=== PATIENT | female | born 1980 | race Caucasian/White ===

== ENCOUNTER 2019-10-30 05:32 | Observation (INO) ==
--- NOTE | 2019-10-09 15:24 | Anesthesiology Consultation ---
Date of Service October 09, 2019 Assessment & Plan (1) Encounter for pre-operative examination: - Check test AM DOS Chart Review Chart Review: Acceptable Risk for Surgery and Patient NOT seen in Pre Admission Testing History Surgery Operation Date: 10/30/19 07:30 Proposed Procedures p Abdominoplasty, - Eliza Landers MD s Bilateral Breast Implant Removal with Mastopexy and Suction Assisted Liposuction of Thighs - Eliza Landers MD Height/Weight Height: 5 ft 4 in Weight: 77.111 kg Allergies Allergy/AdvReac Type Severity Reaction Status Date / Time No Known Allergies Allergy Verified 08/02/19 08:52 Medications Home Medications Medication Instructions Recorded Confirmed Last Taken oxycodone-acetaminophen 5 mg-325 1 tab PO Q4H PRN #18 tab 10/05/19 10/09/19 Unknown mg tablet Lactobacillus acidophilus 1,000 mmu cells PO DAILY 10/09/19 10/09/19 Unknown [Probiotic Acidophilus] cannabidiol 10 mg PO BID 10/09/19 10/09/19 Unknown Past Medical History Medical History Anxiety Seasonal depression Past Family History Family History Grandmother (Paternal) FHx: ovarian cancer Grandfather (Paternal) FHx: lung cancer Grandmother (Maternal) FHx: breast cancer Other No family history of adverse response to anesthesia Past Surgical History Surgical History History of ankle surgery right History of breast augmentation History of section x2 S/P LASIK surgery Social History Smoking Status: Never smoker Do You Dip or Chew Tobacco: No Hx Alcohol Use: Yes alcohol intake frequency: holidays/special occasions only Hx Substance Use: No substance use type: does not use Testing Laboratory Results 10/04/19 WBC 6.37 H/H 14.9/42.4 PLATELETS 263 SODIUM 139 POTASSIUM 3.8 CHLORIDE 106 CO2 27 BUN 6 CREATININE 0.77 GLUCOSE 95 PT 10.1 PTT 24.1 INR 1.0 Electrocardiogram Date: 10/04/19 Findings: + SB @ (46)
[2019-10-30] MEDS ORDERED: LR 15ML/HR IV SCH (06:00)
[2019-10-30] MEDS ORDERED: CEFAZOLIN 2000MG 2,000 MG/15 ML SYR IV SCH (06:00)
[2019-10-30] MEDS ORDERED: GLYCOPYRROLATE 0.2 MG/ML VIAL ONE (06:59)
[2019-10-30] MEDS ORDERED: PHENYLEPHRINE HCL 10 MG/ML VIAL ONE ×2 (06:59→12:36)
[2019-10-30] MEDS ORDERED: ONDANSETRON INJ 2 MG/ML 2 ML VIAL ONE ×2 (06:59→10:16)
[2019-10-30] MEDS ORDERED: PROPOFOL IV EMULSION 10 MG/ML 20 ML VIAL IV ONE (06:59)
[2019-10-30] MEDS ORDERED: HYDROmorphone INJ 2 MG/ML SYR/VIAL IV PRN (06:59)
[2019-10-30] MEDS ORDERED: ONDANSETRON INJ 2 MG/ML 2 ML VIAL IV PRN ×2 (06:59→14:43)
[2019-10-30] MEDS ORDERED: DEXAMETHASONE SOD INJ 4 MG/ML VIAL ONE (06:59)
[2019-10-30] MEDS ORDERED: MIDAZOLAM HCL 1 MG/ML 2ML VIAL ONE (06:59)
[2019-10-30] MEDS ORDERED: ATROPINE SULFATE 0.1 MG/ML 10ML SYR IV PRN (06:59)
[2019-10-30] MEDS ORDERED: SUCCINYLCHOLINE CHLORIDE 20 MG/ML 10 ML VIAL ONE (06:59)
[2019-10-30] MEDS ORDERED: ePHEDrine sulfate 50 MG/ML AMP IV PRN (06:59)
[2019-10-30] MEDS ORDERED: NEOSTIGMINE METHYLSULFATE 5 MG/5 ML SYR ONE (06:59)
[2019-10-30] MEDS ORDERED: ePHEDrine sulfate 50 MG/ML AMP ONE (06:59)
[2019-10-30] MEDS ORDERED: LIDOCAINE HCL 2% 2 ML VIAL/AMP(20MG/ML) INFIL ONE (06:59)
[2019-10-30] MEDS ORDERED: fentaNYL citrate 100 MCG/2 ML VIAL ONE ×3 (07:00→15:24)
[2019-10-30] MEDS ORDERED: BUPIVACAINE 0.25% 30 ML VIAL ONE (07:10)
[2019-10-30] MEDS ORDERED: LIDOCAINE HCL 1% 20 ML VIAL ONE ×2 (07:10→07:32)
[2019-10-30] MEDS ORDERED: LIDOCAINE/EPINEPHRINE 1% 20 ML VIAL ONE ×2 (07:10→10:24)
[2019-10-30] MEDS ORDERED: EpINEphrine HCL INJ 1 MG/ML 1ML SYRINGE ONE (07:11)
[2019-10-30] MEDS ORDERED: CEFAZOLIN 250 MG/ML 1 GM VIAL ONE ×2 (07:11→13:57)
[2019-10-30] MEDS ORDERED: BACITRACIN INJ 50,000 UNIT VIAL ONE (07:11)
[2019-10-30] MEDS ORDERED: BUPIVACAINE/EPINEPHRINE 0.25% 1:200,000 30 ML VIAL ONE (07:12)
[2019-10-30] MEDS ORDERED: GENTAMICIN SULFATE 40 MG/ML 2 ML VIAL ONE (07:12)
[2019-10-30] MEDS ORDERED: SCOPOLAMINE 1.5 MG TDSY ONE (07:16)
--- NOTE | 2019-10-30 07:27 | History & Physical Bridge Note ---
Date of Service October 30, 2019 History & Physical Bridge Note I have examined the patient, reviewed the History & Physical and in the interval since the performance of the History & Physical I have noted the following changes of clinical significance: no changes noted
[2019-10-30] MEDS ORDERED: HYDROmorphone INJ 2 MG/ML SYR/VIAL ONE (08:31)
[2019-10-30] MEDS ORDERED: SODIUM CHLORIDE 0.9% INJ 10 ML VIAL ONE (08:32)
[2019-10-30] MEDS ORDERED: ROCURONIUM BROMIDE 10 MG/ML 5 ML VIAL ONE ×2 (09:24→12:26)
[2019-10-30] MEDS ORDERED: raNITIdine HCl 25 MG/ML VIAL IV ONE (09:24)
[2019-10-30] MEDS ORDERED: METOCLOPRAMIDE HCL INJ 5 MG/ML 2 ML VIAL ONE (09:24)
[2019-10-30] MEDS ORDERED: ePHEDrine sulfate 50 MG/ML SYR ONE (13:32)
--- NOTE | 2019-10-30 14:04 | Post Operative Brief Note ---
PG Immediate Post Op with CF Date of Surgery October 30, 2019 Pre & Post Diagnosis Operation Date: 10/30/19 07:30 Pre-Op Diagnosis: Encounter for Cosmetic Surgery Post-Op Diagnosis: Encounter for Cosmetic Surgery I identified the patient and participated in the time-out.: Yes Procedure Operation Date: 10/30/19 07:30 Actual Procedures p Abdominoplasty,(Not Applicable) - Eliza Landers MD s Bilateral Breast Implant Removal with Mastopexy and Suction Assisted Liposuction of Thighs, Abdomen, and Bilateral Flanks(Bilateral) - Eliza Landers MD Surgeon Eliza Landers MD Tow Operator Nadege Chakraborty PA-C, Janel Corona PA-C Estimated Blood Loss 50 Findings Consistent with Post-Op Diagnosis Specimens Specimen Description: A. Left Breast Implant and Capsule- Hold for Patient B. Right Breast Implant and Capsule - Hold for Patient Drains Jones Catheter and Vj-Hsieh Drain (drains x two (right and left breast incisions), and drains x 2 (right and left abdomen))
[2019-10-30] MEDS ORDERED: OXYCODONE/ACETAMINOPHEN 5mg/325mg TAB PO PRN (14:43)
[2019-10-30] MEDS ORDERED: PROMETHAZINE HCL 12.5 MG in SODIUM CHLORIDE 0.9% 50 ML IV PRN (14:43)
[2019-10-30] MEDS ORDERED: DiphenhydrAMINE HCL 50 MG/ML VIAL IV PRN (14:43)
[2019-10-30] MEDS ORDERED: MoRPHine SULFATE 4 MG/ML 1 ML CARP\\VIAL IV PRN ×2 (14:43→16:54)
[2019-10-30] MEDS ORDERED: LORazepam 0.5 MG TAB PO PRN (14:43)
--- NOTE | 2019-10-30 14:46 | Operative Report ---
PG Post Operative Report Pre & Post Diagnosis Operation Date: 10/30/19 07:30 Pre-Op Diagnosis: Encounter for Cosmetic Surgery Post-Op Diagnosis: Encounter for Cosmetic Surgery I identified the patient and participated in the time-out.: Yes Procedure Operation Date: 10/30/19 07:30 Actual Procedures p Abdominoplasty,(Not Applicable) - Eliza Landers MD s Bilateral Breast Implant Removal with Mastopexy and Suction Assisted Liposuction of Thighs, Abdomen, and Bilateral Flanks(Bilateral) - Eliza Landers MD Surgeon Eliza Landers MD Quality Director Nadege Chakraborty PA-C, Inge Corona PA-C Estimated Blood Loss 50 Findings Consistent with Post-Op Diagnosis Specimens breast implants, capsules to pathology Drains YOJANA x4 Anesthesia Type General Regional Complications none Disposition Disposition: Recovery Room Indications Desiring breast implant removal, cosmetic improvement of breasts,abdomen and thighs Description of Procedure Risks, benefits, and alternatives of the procedure were explained to the patient agreed and signed consent. Breast implant removal as well as resulting poor cosmesis was discussed, and we discussed simultaneous mastopexy. She also desired abdominoplasty to correct abdominal wall laxity and liposuction of the abdomen, flanks and thighs. Patient was marked in the preoperative holding area, brought to the operating room, and positioned supine. She was placed under general anesthesia without incident. Jones catheter was placed. Surgical site was prepped and draped sterilely. I began with the left side. 1% lidocaine with epinephrine was used to anesthetize the planned incisions. A 38 millimeter cookie cutter was used to circumscribe the left nipple areolar complex. 15 blade scalpel then made the mastopexy incisions. The skin between the incisions was de-epithelialized using a 15 blade scalpel. I then used electrocautery to make an incision through dermis, underlying subcutaneous fat and breast parenchyma until the capsule was identified. Electrocautery was used to carefully dissect the anterior aspect of the capsule with implant in place. The entire anterior superior aspect was dissected, and then posterior capsule dissection was begun with the implant in place. Implant was noted to be in the retropectoral plane. I was unable to adequately see into the axillary portion of the pocket and therefore the capsule was incised, implant was removed. The implant was noted to be intact, marked [place] moderate plus profile 475 cc, was a smooth saline implant. Capsule was noted to be thin and pliable, without evidence of thickening or calcification. The remainder of the capsule was then dissected using an Allis clamp and electrocautery a portion of the posterior ca psule was unable to be completely removed as it was quite thin and over the intercostal musculature. Electrocautery was performed to facilitate adherence of the breast parenchyma. Hemostasis was achieved using electrocautery. Once hemostasis was felt to be adequate, 15 Welsh Gt drain was placed into the pocket and brought out through separate stab incision. Due to the inferior pole of the breast being less than 2 cm in thickness, I did not raise mastopexy flaps. 2-0 Vicryl suture was then used to reapproximate the T-junction, and wound closure was begun using 2-0 Vicryl deep dermal sutures to reapproximate the wounds. Once inset of the nipple areolar complex was complete and the wound was closed in the dermal layer using 2-0 PDO Quill, 3-0 Monocryl running subcuticular suture was placed around the nipple areolar complex, vertical limb, and inframammary fold. An identical procedure was undertaken on the right side. Right breast implant was noted to likewise be intact and capsule was thin and pliable without any concerning findings. YOJANA drains were sutured into place using 3-0 nylon suture. Dermabond Prineo was applied to all incisions. At the close of the case, nipple areolar complexes were pink and viable. Attention was then turned to suction assisted lipectomy of the abdomen and flanks. Several small stab incisions were marked and injected with 1% lidocaine with epinephrine. I began by using tumescent solution to infiltrate the abdomen and flanks. A total of 600 cc of tumescent solution was utilized. I then pre- tunnel using a 4 mm liposuction cannula, prior to applying suction. Suction was applied and cannula was passed in a fanning motion from multiple access incisions. Endpoint was improvement in contour and uniform pinch. A total of 600 cc was aspirated from the abdomen and flanks. Attention was then turned to bilateral medial thighs. Total of 200 cc was infiltrated into each medial thigh and 100 cc of Lipo aspirate was obtained. Again endpoint was improvement in contour. No step-off or contour deformity was noted following completion of this portion of the procedure. I then began the abdominoplasty portion. I reassessed my markings which included a lower horizontal abdominal incision with the midportion 7 cm above the vulvar commissure. Incision was marked bilaterally to the ASIS. I began by injecting 1% lidocaine with epinephrine along the planned incision. The lower abdominal incision was made using a 15- blade scalpel to incise epidermis and superficial dermis followed by electrocautery to incise deep dermis, subcutaneous fat, Travis's fascia down to the abdominal wall. Electrocautery was used to elevate the anterior abdominal skin flap ligating the perforating vessels with electrocautery. Dissection was carried up to the level of the umbilicus in the midline. At this point, a 15- blade scalpel was used to circumscribe the umbilicus. A vertical midline incision was then made from the incision to the umbilicus and divided in the midline using electrocautery. The umbilicus was then dissected out using electrocautery down to abdominal wall. The umbilical stalk appeared viable throughout the procedure. A small umbilical hernia was noted. Dissection was carried up centrally to the xiphoid process achieving hemostasis with electrocautery throughout the procedure. Given the prior liposuction, I did perform dissection in a more narrow fashion above the umbilicus. A large rectus diastases was noted, approximately 3 fingerbreadths above the umbilicus, 2 fingerbreadths below the umbilicus. Plication was undertaken using 0 Prolene [id number] sutures both above and below the umbilicus in interrupted fashion, and the repair was reinforced using 0 Prolene running suture both superior and inferior to the umbilicus. Umbilical hernia was able to be reduced and a Prolene suture was placed at the site. A this point, the bed was flexed and the mid portion of the superior skin flap attempted to be inset above the mons pubis using 2-0 Vicryl suture. Despite significant flexing of the bed, this was noted to be under significant tension, and given prior umbilical piercing, there was questionable viability of tissue in this site as there was minimal subcutaneous tissue, only scar. Therefore, I did elect to perform a small vertical incision excising this prior piercing and closing the defect created from the umbilicus. A 2-0 Vicryl suture was then used for inset. Skin flaps were marked for excision. A 15-blade scalpel was used to make these incisions and the incision was deepened through dermis, subcutaneous fat, Travis's fat using electrocautery. Subscarpal fat was resected directly. A 15 Welsh Gt drains were placed in the wound bed and brought out through a separate stab incision in the mons pubis. The drains were sutured into place using 3-0 nylon. The umbilicus was brought out through an inverted triangular incision in the abdominal wall. Wound closure was then begun lateral to medial using 2-0 Vicryl Travis's fascia sutures, 2-0 Vicryl deep dermal sutures, 2-0 PDO running superficial Quill suture, 3-0 Monocryl running subcuticular suture. Umbilicus was brought out through the inverted triangle incision and was sutured into place using 4-0 chromic half buried horizontal mattress sutures. Liposuction access incisions were closed using 4-0 chromic interrupted suture. The umbilicus was dressed using Xeroform and the incision was dressed using Dermabond Prineo followed by dry dressings, surgical bra and patient provided compression body suit. The procedure was tolerated well. The patient was awakened and transferred to recovery in satisfactory condition. Nadege Chakraborty and Inge Corona PA-C were present and scrubbed throughout the entire procedure and was instrumental in providing retraction of the pannus and assisting in simultaneous wound closure. I attest to the content of the Intraoperative Record and any orders documented therein. Any exceptions are noted below.
[2019-10-30] MEDS: fentaNYL citrate 100 MCG/2 ML VIAL IV PRN ×2 (15:25→15:30)
--- NOTE | 2019-10-30 17:07 | Anesthesiology Progress Note ---
Date of Service October 30, 2019 Anesthesia Post Procedure Vital Signs Vital Signs: Temp Pulse Pulse Resp BP BP Pulse Ox 10/30/19 16:20 36.3 C L 62 18 149/84 H 98 10/30/19 16:10 59 L 18 128/78 99 10/30/19 15:55 36.1 C L 53 L 21 128/76 99 10/30/19 15:45 74 16 133/73 100 10/30/19 15:35 73 20 122/69 99 10/30/19 15:25 65 20 126/81 98 10/30/19 15:15 85 20 129/78 100 10/30/19 15:05 97 H 21 132/84 100 10/30/19 14:57 35.9 C L 109 H 25 H 127/84 100 10/30/19 06:01 36.6 C 50 L 16 107/64 100 Pain Intensity Upper Abdomen: Pain Intensity: 2 Transfer of Care Handoff Completed per policy Notes Mental Status: alert / awake / arousable and participated in evaluation Patient Amnestic to Procedure: Yes Nausea / Vomiting: adequately controlled Pain: adequately controlled Airway Patency, RR, SpO2: stable & adequate BP & HR: stable & adequate Hydration State: stable & adequate Anesthetic Complications: no major complications apparent and Pt Satisfied with anesthetic care
[2019-10-30] MEDS: MoRPHine SULFATE 2 MG/ML CARP IV PRN ×3 (17:35→21:35)
[2019-10-30] MEDS: D5W AND 1/2NSS + 20MEQ KCL 20 MEQ/1,000 ML BAG IV SCH (17:55)
[2019-10-30] MEDS: CEFAZOLIN 2000MG 2,000 MG/15 ML SYR IV SCH (17:56)
[2019-10-30] MEDS ORDERED: COUGH DROP (SUGAR FREE) LOZ 24 LOZ/1 BOX BUCCAL ONE (19:40)
[2019-10-31] MEDS: CEFAZOLIN 2000MG 2,000 MG/15 ML SYR IV SCH (01:23)
[2019-10-31] MEDS: MoRPHine SULFATE 2 MG/ML CARP IV PRN ×2 (01:32→04:00)
[2019-10-31] MEDS: D5W AND 1/2NSS + 20MEQ KCL 20 MEQ/1,000 ML BAG IV SCH (04:01)
[2019-10-31] MEDS: OXYCODONE/ACETAMINOPHEN 5mg/325mg TAB PO PRN ×2 (05:53→11:24)
--- NOTE | 2019-10-31 08:27 | Surgery Progress Note ---
Date of Service October 31, 2019 Assessment & Plan (1) Encounter for cosmetic surgery: POD#1 s/p bilateral breast implant removal with mastopexy, abdominoplasty and liposuction of the thighs 1. pos-top activity restrictions and dressing changes reviewed with the patient. anticipate d/c home this morning Subjective Patient is ambulating upon entering room. Catherter was removed, attempting to void. Pain is well controlled. Physical Exam Physical Exam: Incisions all CDI. umbilicus viable. drains with appropriate serosang output. no evidence of infection. umbilical packing changed and patient instructed on how to change dressings daily Results & Data Vital Signs (Past 12 Hours) Vital Signs Temp Pulse Resp BP Pulse Ox 10/31/19 07:17 36.8 C 62 16 100/62 95 10/31/19 04:09 37.0 C 63 15 103/61 94 10/30/19 23:04 37.0 C 71 15 103/61 94 PG Care Time/CCT Total # of Minutes Spent Total Time Spent with Patient: Total time spent is greater than 50% in coordination of care (as documented) at patient's floor/unit and/or counseling patient: Coding Level of Care Code None Diagnoses Encounter for cosmetic surgery Z41.1
[2019-10-31 08:32] LABS: Creatinine Clr Calc Pharmacy 101.8 ml/min; Est GFR (African American) 114.3; Est GFR (Non-African American) 98.6
[2019-10-31] MEDS ORDERED: ENOXAPARIN INJ 40 MG/0.4 ML SYR SQ SCH (09:00)
[2019-10-31] MEDS ORDERED: MULTIVITAMIN TAB PO SCH (09:00)
--- NOTE | 2019-10-31 09:38 | Anesthesiology Progress Note ---
Date of Service October 31, 2019 Anesthesia Post Procedure Vital Signs Vital Signs: Temp Pulse Pulse Resp BP Pulse Ox 10/31/19 07:17 36.8 C 62 16 100/62 95 10/31/19 04:09 37.0 C 63 15 103/61 94 10/30/19 23:04 37.0 C 71 15 103/61 94 10/30/19 19:49 36.9 C 91 H 18 115/73 92 10/30/19 18:15 36.9 C 80 16 124/80 92 10/30/19 17:21 36.6 C 59 L 17 120/75 96 10/30/19 16:20 36.3 C L 62 18 149/84 H 98 10/30/19 16:10 59 L 18 128/78 99 10/30/19 15:55 36.1 C L 53 L 21 128/76 99 10/30/19 15:45 74 16 133/73 100 10/30/19 15:35 73 20 122/69 99 10/30/19 15:25 65 20 126/81 98 10/30/19 15:15 85 20 129/78 100 10/30/19 15:05 97 H 21 132/84 100 10/30/19 14:57 35.9 C L 109 H 25 H 127/84 100 Pain Intensity Upper Abdomen: Pain Intensity: 3 Bilateral Breast: Pain Intensity: 4 Notes Mental Status: alert / awake / arousable and participated in evaluation Nausea / Vomiting: adequately controlled Pain: adequately controlled Airway Patency, RR, SpO2: stable & adequate BP & HR: stable & adequate Hydration State: stable & adequate Anesthetic Complications: no major complications apparent and Pt Satisfied with anesthetic care
--- NOTE | 2019-10-31 15:21 | Discharge Summary ---
Date of Service October 31, 2019 Admission HPI Per Admitting Provider see admission H&P Admission Exam Per Admitting Provider see admission H&P Principal Diagnosis encounter for cosmetic surgery Discharge Exam Incisions all CDI. umbilicus viable. drains with appropriate serosang output. no evidence of infection. umbilical packing changed and patient instructed on how to change dressings daily Discharge Data Allergies Allergy/AdvReac Type Severity Reaction Status Date / Time No Known Allergies Allergy Verified 10/30/19 05:56 Procedures Performed Operation Date: 10/30/19 07:30 Actual Procedures p Abdominoplasty,(Not Applicable) - Eliza Landers MD s Bilateral Breast Implant Removal with Mastopexy and Suction Assisted Liposuc tion of Thighs, Abdomen, and Bilateral Flanks(Bilateral) - Eliza Landers MD Ordered Studies 10/30/19 07:30 US - OR guided needle placemen Routine Hospital Course (1) Encounter for cosmetic surgery: Patient presented to [facility] for cosmetic surgery. She was taken to the OR and underwent bilateral breast implant removal with mastopexy, abdominoplasty, and liposuction of the thighs. There were no intraoperative complications. She was taken to recovery and transferred to med/surg for observation. On POD#1, she was feeling well. She was tolerating a regular diet and ambulating. She was able to void after catheter was removed. On exam, her vitals were stable. Her incisions were CDI. Her drains had appropriate output. She was discharged home. Patient will follow-up as an outpatient. Total Time Total Time Spent Total Time Spent (In Minutes): 15 Total Time Includes: Examination of the Patient, Discharge Planning, Medication Reconciliation and Communication With Other Providers Discharge Plan Discharge Items Patient Disposition: Home - Self-Care Reason For Visit: Encounter for Cosmetic Surgery Discharge Diagnosis: s/p cosmetic surgery Activity: As commented below Non-emergency contact: Surgeon Call non-emergency contact if: you have any medication questions, your pain is not controlled, you have a fever, your wound has increased redness and your wound has increased drainage Follow-up/Referrals: PCP,NO [Primary Care Provider] - Diet: Regular Addtl Attending Provider Instructions: ACTIVITY RECOMMENDATIONS: __Normal activities x__No bending, lifting or straining __No driving __Driving allowed when you are off pain medications _x_Walking permitted __You should have help at home for ___ days DRESSINGS: __No dressings required __Keep dressings dry/in place until first office visit _x_Remove dressings _tomorrow__ and leave dressings off. must wear compression garment for 6 weeks. Change xeroform (yellow gauze) around drain sites and in belly button daily. Cover with a bandaid or gauze/tape to hold in place. Remainder of incisions do not need gauze. __Apply ice ___ days __Remove dressings and reapply garment __Apply antibiotic ointment (Bacitracin, Neosporin, etc) to wounds 3-4 times/day for 10 days BATHING: __Keep dressings dry _x_Sponge bathing permitted _x_Showering permitted tomorrow (11/01/19) _x_No swimming, hot tubs or soaking in a tub MEDICATIONS: Resume previous medications unless instructed otherwise by your surgeon. _x_Do not use aspirin, Motrin, Advil or Ibuprofen as these may promote bleeding. Please use Tylenol. _x_Prescription(s) provided: pain medication prescribed at your last office visit. OTHER INSTRUCTIONS: _x_Record drain output 2-3 times per day. Drains are ready to be removed when output is at 10cc/24 hours. SPECIAL CARE INSTRUCTIONS: * It is normal to have a mild fever after surgery. If your temperature is higher than 101.5 degrees F, please call the office at [phone]. * Constipation is a typical side effect of pain medication. An [id number]-byo-mxphtox stool softener will help relieve this. * Leaking around surgical drains may occur and should not cause concern. Sometimes these drains become clogged. If this happens, remove the bulb and milk the clot out of the tube, then replace the bulb. * Drainage from wounds after liposuction is normal and should be expected. Garments will become soiled. You should protect furniture and bedding. This drainage should mostly subside within 2-3 days. Leave garments in place unless instructed to remove them. * If you have unusual drainage from a wound or are concerned you have an infection or have any questions or concerns, please call the office at [phone]. FOLLOW UP VISIT: If not already scheduled, please call the office, , when you return home after surgery to schedule an appointment to be seen in 2 weeks for suture removal. Pending Studies at Discharge: No Stand-Alone Forms: [facility], Opioid Pain Management, Smoking Cessation Medications and DC Order Prescriptions: Continued oxycodone-acetaminophen [Endocet] 5-325 mg tablet 1 tab PO Q4H PRN (Reason: pain) Qty: 18 RF: 0 Probiotic Acidophilus 1.5 mg (250 million cell) Capsule 1,000 mmu cells PO DAILY RF: 0 Discontinued cannabidiol 100 mg/mL Solution 10 mg PO BID RF: 0 Discharge Orders: Discharge Order (Routine); Ordered 10/31/19 Ordered By: Nadege Willson/Other Patient Handouts: DVT Post Op Prevention, Liposuction, Abdominoplasty W Liposuction Admission Data Admit Date/Time: 10/30/19 14:43 Attending Provider: Eliza Landers Admit Provider: Eliza Landers Primary Care Provider: PCP,NO Other Interventions: Discharge Summary Assessment (RN) Last Done: 10/31/19 09:47 DC Date/Time DO NOT enter until pt leaves facility: 10/31/19 11:52 Coding Level of Care Code 44726 OBS Care - Discharge Diagnoses Encounter for cosmetic surgery Z41.1
== END 2019-10-31 11:52 | disposition home or self-care (01) ==
LOC: 3W 05:32 → ASU 05:32